=== PATIENT | female | born 1990 | race Caucasian/White ===

== ENCOUNTER 2017-02-04 11:55 | Emergency (ER) | payer MEDICAID, OTHER ==
[2017-02-04 11:59] VITALS: BP 122/79
[2017-02-04] MEDS ORDERED: ACETAMINOPHEN 325 MG TABLET PO ONE (12:25)
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
== END 2017-02-04 13:25 | disposition home or self-care (01) ==
LOC: ER 11:55
DX: G44.209 Tension-type headache, unspecified, not intractable (principal); V49.9XXA Car occupant (driver) (passenger) injured in unspecified traffic accident, initial encounter; W22.11XA Striking against or struck by driver side automobile airbag, initial encounter
CPT/HCPCS: 99283; J3490

== ENCOUNTER → 2017-02-07 | Outpatient (CLI) | payer MEDICAID | LOC: RAD 14:05 | PROVIDERS: ATTEND Nurse Practitioner Women's Health | DX: Z34.81 Encounter for supervision of other normal pregnancy, first trimester (principal) | CPT/HCPCS: 76801 ==

== ENCOUNTER → 2017-06-20 | Outpatient (CLI) | payer MEDICAID ==
[~2017-06-20] MED LIST: BETAMET ACET/BETAMET NA INJ 6 MG/1 ML IM PRN; BETAMET ACET/BETAMET NA INJ 6 MG/1 ML ONE
== END ==
LOC: LC 16:22
PROVIDERS: ATTEND Obstetrics & Gynecology
PROC: 4A1HXCZ Monitoring of Products of Conception, Cardiac Rate, External Approach (ICD-10-PCS; principal; 2017-06-20)
DX: Z36 Encounter for antenatal screening of mother (principal)
CPT/HCPCS: 96372; J0702

== ENCOUNTER → 2017-06-21 | Outpatient (CLI) | payer MEDICAID | LOC: LC 19:09 | PROVIDERS: ATTEND Specialist | DX: Z36 Encounter for antenatal screening of mother (principal) | CPT/HCPCS: 96372; J0702 ==

== ENCOUNTER 2017-07-23 19:59 | Inpatient (IN) | payer MEDICAID ==
[2017-07-23] MEDS ORDERED: RINGERS SOLUTION,LACTATED 300 ML IV ONE (20:06)
[2017-07-23] MEDS ORDERED: DINOPROSTONE 10 MG VAGINAL INSERT.SR PV PRN (20:06)
[2017-07-23 21:08] LABS: ABSOLUTE BASOPHILS # (AUTO) 0.1 10^3/uL (0.0-0.2); ABSOLUTE EOSINOPHILS # (AUTO) 0.1 10^3/uL (0.0-0.6); ABSOLUTE LYMPHOCYTES (AUTO) 1.3 10^3/uL (0.5-4.7); ABSOLUTE MONOCYTES (AUTO) 0.6 10^3/uL (0.1-1.4); ABSOLUTE NEUT (AUTO) 6.7 10^3/uL (1.7-8.2); BASOPHILS % (AUTO) 0.7 % (0-2); EOSINOPHILS % (AUTO) 1.2 % (0-6); HEMATOCRIT 33.7 % (36.0-47.0); HEMOGLOBIN 11.8 g/dL (12.0-15.5); HGB HCT DIFFERENCE 1.7; LYMPHOCYTES % (AUTO) 14.6 % (13-45); MEAN CORPUSCULAR HEMOGLOBIN 30.6 pg (27.0-33.4); MEAN CORPUSCULAR HGB CONC 34.9 g/dL (32.0-36.0); MEAN CORPUSCULAR VOLUME 88 fl (80-97); MONOCYTES % (AUTO) 6.6 % (3-13); RED BLOOD COUNT 3.84 10^6/uL (3.72-5.28); RED CELL DISTRIBUTION WIDTH 12.2 % (11.5-14.0); SEGMENTED NEUTROPHILS % (AUTO) 76.9 % (42-78); WHITE BLOOD COUNT 8.7 10^3/uL (4.0-10.5)
[2017-07-23] MEDS: RINGERS SOLUTION,LACTATED 1,000 ML IV PRN (21:12)
[2017-07-23] MEDS ORDERED: DINOPROSTONE 10 MG VAGINAL INSERT.SR ONE (21:15)
[2017-07-23 21:34] LABS: ALANINE AMINOTRANSFERASE 75 U/L (9-52); ALBUMIN 3.5 g/dL (3.5-5.0); ALKALINE PHOSPHATASE 202 U/L (38-126); ANION GAP 9 (5-19); ASPARTATE AMINO TRANSFERASE 37 U/L (14-36); BILIRUBIN,DIRECT 0.5 mg/dL (0.0-0.4); BILIRUBIN,TOTAL 0.6 mg/dL (0.2-1.3); BLOOD UREA NITROGEN 11 mg/dL (7-20); CALCIUM 9.6 mg/dL (8.4-10.2); CARBON DIOXIDE 22 mmol/L (22-30); CHLORIDE 104 mmol/L (98-107); CREATININE RESULT 0.48 mg/dL (0.52-1.25); GLUCOSE 101 mg/dL (75-110); LDH 405 U/L (313-618); POTASSIUM 4.3 mmol/L (3.6-5.0); SODIUM 135.1 mmol/L (137-145); TOTAL PROTEIN 6.5 g/dL (6.3-8.2)
[2017-07-23 21:40] LABS: APPEARANCE,URINE CLEAR; BILIRUBIN,URINE NEGATIVE (NEGATIVE); GLUCOSE, URINE NEGATIVE (NEGATIVE); KETONES,URINE NEGATIVE (NEGATIVE); LEUKOCYTE ESTERASE,URINE NEGATIVE (NEGATIVE); NITRITE,URINE NEGATIVE (NEGATIVE); PROTEIN,URINE NEGATIVE (NEGATIVE); UROBILINOGEN,URINE NEGATIVE mg/dL (<2.0)
[2017-07-23 21:53] LABS: URINE BARBITURATES SCREEN NEGATIVE; URINE METHADONE SCREEN NEGATIVE; URINE OPIATES LOW NEGATIVE; URINE PHENCYCLIDINE SCREEN NEGATIVE
[2017-07-23] MEDS ORDERED: URSODIOL 300 MG CAPSULE PO ONE (23:00)
[2017-07-24] MEDS ORDERED: ZOLPIDEM TARTRATE 5 MG TABLET PO ONE ×2 (00:02→22:33)
[2017-07-24] MEDS ORDERED: ZOLPIDEM TARTRATE 5 MG TABLET ONE ×2 (00:04→22:35)
[2017-07-24] MEDS: RINGERS SOLUTION,LACTATED 1,000 ML IV PRN ×2 (00:10→20:35)
[2017-07-24] MEDS ORDERED: VALACYCLOVIR HCL 500 MG TABLET ONE ×2 (09:00→16:56)
[2017-07-24] MEDS ORDERED: OXYTOCIN/NORMAL SALINE 20 UNIT/1,000 ML RTUINJ IV PRN (09:00)
[2017-07-24] MEDS ORDERED: PENICILLIN G POTASSIUM 5,000,000 UNIT in DEXTROSE 5%-WATER 100 ML IV ONE (09:00)
[2017-07-24] MEDS: URSODIOL 300 MG CAPSULE PO SCH ×3 (09:27→22:17)
[2017-07-24] MEDS ORDERED: PROMETHAZINE HCL INJ 25 MG/1 ML VIAL ONE (11:06)
[2017-07-24] MEDS ORDERED: OXYTOCIN/NORMAL SALINE 20 UNIT/1,000 ML RTUINJ ONE (11:06)
[2017-07-24] MEDS ORDERED: NALBUPHINE HCL INJ 10 MG/1 ML AMPULE ONE (11:06)
[2017-07-24] MEDS ORDERED: PENICILLIN G-K 5 MILLION UNIT VIAL ONE ×3 (12:20→22:14)
[2017-07-24] MEDS: PENICILLIN G POTASSIUM 2,500,000 UNIT in DEXTROSE 5%-WATER 50 ML IV SCH ×2 (18:17→22:16)
[2017-07-24] MEDS: VALACYCLOVIR HCL 500 MG TABLET PO SCH (18:17)
[2017-07-24] MEDS ORDERED: MISOPROSTOL 0.1 MG TABLET ONE (20:27)
[2017-07-25] MEDS ORDERED: MISOPROSTOL 0.1 MG TABLET PO ONE ×2 (00:39→04:46)
[2017-07-25] MEDS ORDERED: MISOPROSTOL 0.1 MG TABLET PV ONE ×2 (00:41→04:44)
[2017-07-25] MEDS ORDERED: MISOPROSTOL 0.1 MG TABLET ONE ×2 (00:42→04:48)
[2017-07-25] MEDS ORDERED: PENICILLIN G-K 5 MILLION UNIT VIAL ONE ×4 (02:09→13:55)
[2017-07-25] MEDS: PENICILLIN G POTASSIUM 2,500,000 UNIT in DEXTROSE 5%-WATER 50 ML IV SCH ×5 (02:12→20:11)
[2017-07-25] MEDS: RINGERS SOLUTION,LACTATED 1,000 ML IV PRN (03:48)
[2017-07-25] MEDS: URSODIOL 300 MG CAPSULE PO SCH ×3 (04:30→16:04)
[2017-07-25] MEDS ORDERED: NALBUPHINE HCL INJ 10 MG/1 ML AMPULE IV ONE (04:44)
[2017-07-25] MEDS ORDERED: PROMETHAZINE HCL INJ 25 MG/1 ML VIAL IV ONE (04:44)
[2017-07-25] MEDS ORDERED: PROMETHAZINE HCL INJ 25 MG/1 ML VIAL ONE (04:48)
[2017-07-25] MEDS ORDERED: NALBUPHINE HCL INJ 10 MG/1 ML AMPULE ONE (04:48)
[2017-07-25] MEDS ORDERED: VALACYCLOVIR HCL 500 MG TABLET ONE (10:06)
[2017-07-25] MEDS: VALACYCLOVIR HCL 500 MG TABLET PO SCH (10:08)
[2017-07-25] MEDS ORDERED: SUCCINYLCHOLINE CHLORIDE INJ 200 MG/10 ML VIAL ONE (10:21)
[2017-07-25] MEDS ORDERED: EPHEDRINE SULFATE INJ 50 MG/1 ML AMPULE ONE ×2 (10:43→17:06)
[2017-07-25] MEDS ORDERED: BUPIVACAINE HCL 0.25 % INJ/PF (2.5 MG/1 ML) 30 ML VIAL ONE (10:44)
[2017-07-25] MEDS ORDERED: FENTANYL/BUPIVACAINE/NS/PF 200 MCG/100 ML RTUINJ EPI ONE (10:44)
--- NOTE | 2017-07-25 12:39 | L&D Progress Notes ---
PROGRESS NOTES Datetime Report Generated by CPN: 07/25/2017 12:39 PROGRESS NOTE Impression: Reassuring Heart Rate Plan: Continue Present Management; Induction Informed Consent Obtained: Vaginal Delivery Vital Signs : Reviewed; Within Normal Limits Comment: pt comfortable after epidural, Cat 1 strip, mod variability, uc's q 2 min, Pit off, after epidural had variables and lates which has resolved anticipate FETUS A FHR - Baseline: 150 Variability: Moderate 6-25bpm Accelerations: 15X15 Decelerations: Late; Variable FHR Comments: after epidural SIGNATURE SIGNATURE: [id number] Assignment: Rolando Kim MD Signature: with User ID: Jenn : with User ID: [email or web address]
--- NOTE | 2017-07-25 14:21 | L&D Progress Notes ---
PROGRESS NOTES Datetime Report Generated by CPN: 07/25/2017 14:21 PROGRESS NOTE Impression: Reassuring Heart Rate Procedures: Artificial ROM; Sterile Vag Exam Plan: Continue Present Management Informed Consent Obtained: Vaginal Delivery Comment: VE 70/vtx/0 to -1, minimal variability, arom with FSE, mod mec, unable to place FSE due to large amount of mec fluid and position of head against cervix POC discyssed with pt and FOB, no Pitocin, uc's q 2-3, will monitor closely FETUS A FHR - Baseline: 155 Monitoring: External US Variability: Moderate 6-25bpm Accelerations: 15X15 : 36.0 FETUS C SIGNATURE: [id number] Assignment: Rolando Kim MD Signature: with User ID: Jenn : with User ID: [email or web address]
--- NOTE | 2017-07-25 16:31 | L&D Progress Notes ---
PROGRESS NOTES Datetime Report Generated by CPN: 07/25/2017 16:31 PROGRESS NOTE Vital Signs : Reviewed; Within Normal Limits Comment: Pitocin turned off, minimal variability, rare variable decel, uc's q 2-3 min x [address] Kim informed of status FETUS A Decelerations: Variable : 36.0 FETUS C SIGNATURE: [id number] Assignment: Rolando Kim MD Signature: with User ID: Jenn : with User ID: [email or web address]
[2017-07-25] MEDS ORDERED: LIDOCAINE 2% INJ-PF (20 MG/ML) 10 ML AMPUL ONE (16:51)
[2017-07-25] MEDS ORDERED: CITRIC ACID/SODIUM CITRATE ORAL SOLN 15 ML UDCUP ONE (17:03)
[2017-07-25] MEDS ORDERED: CEFAZOLIN 2 GM/D5W RTU 2 GM/50 ML RTUPB IV ONE (17:04)
[2017-07-25] MEDS ORDERED: KETOROLAC TROMETHAMINE INJ/PF 30 MG/1 ML SDV ONE (17:05)
[2017-07-25] MEDS ORDERED: OXYTOCIN 10 UNIT/ML VIAL ONE (17:05)
[2017-07-25] MEDS ORDERED: FENTANYL CITRATE INJ/PF 250 MCG/5 ML AMPULE ONE (17:05)
[2017-07-25] MEDS ORDERED: FENTANYL CITRATE INJ/PF 100 MCG/2 ML AMPUL ONE ×2 (17:05→20:04)
[2017-07-25] MEDS ORDERED: MIDAZOLAM 2 MG/2 ML INJ ONE (17:06)
[2017-07-25] MEDS ORDERED: ONDANSETRON HCL INJ/PF 4 MG/2 ML SDV ONE (17:06)
[2017-07-25] MEDS ORDERED: OXYTOCIN/NORMAL SALINE 20 UNIT/1,000 ML RTUINJ ONE (17:06)
[2017-07-25] MEDS ORDERED: ACETAMINOPHEN 100 ML IV ONE (17:06)
[2017-07-25] MEDS ORDERED: RINGERS SOLUTION,LACTATED 1,000 ML IV PRN (17:23)
[2017-07-25] MEDS ORDERED: OXYCODONE-ACETAMINOPHEN 5-325 MG TABLET PO PRN (17:23)
[2017-07-25] MEDS ORDERED: OXYTOCIN/NORMAL SALINE 20 UNIT/1,000 ML RTUINJ IV PRN (17:23)
[2017-07-25] MEDS ORDERED: ACETAMINOPHEN 325 MG TABLET PO PRN (17:23)
[2017-07-25] MEDS ORDERED: SIMETHICONE 80 MG TAB.CHEW PO PRN (17:23)
[2017-07-25] MEDS ORDERED: PROMETHAZINE HCL INJ 25 MG/1 ML VIAL IV PRN (17:23)
[2017-07-25] MEDS ORDERED: MEASLES,MUMPS&RUBELLA VACC/PF 0.5 ML VIAL SUBCUT PRN (17:23)
[2017-07-25] MEDS ORDERED: ACETAMINOPHEN 100 ML IV PRN (17:23)
[2017-07-25] MEDS ORDERED: DIPH/PERTUSS(ACELL)/TETANUS VAC/PF 0.5 ML SYR (>=10YO) IM PRN (17:23)
[2017-07-25] MEDS ORDERED: PROPOFOL INJ 200 MG/20 ML VIAL IV ONE ×2 (17:40→18:28)
--- NOTE | 2017-07-25 18:34 | Operative Report ---
Operative Report DATE OF SURGERY: 07/25/17 PREOPERATIVE DIAGNOSIS: Thick meconium and a positive contraction stress test POSTOPERATIVE DIAGNOSIS: Same OPERATION: Primary via low transverse uterine incision SURGEON: ROXANE ORTIZ ANESTHESIA: GA TISSUE REMOVED OR ALTERED: Placenta COMPLICATIONS: None ESTIMATED BLOOD LOSS: 250 cc INTRAOPERATIVE FINDINGS: Normal uterus tubes and ovaries viable female Apgars 7 and 8 PROCEDURE: The baby began having repetitive variables with Pitocin. We also had very thick meconium. The induction was for fear of demise due to the cholestasis of . The patient and her family strongly desired a csection. I agreed. Patient was taken to the OR and placed in supine position after her epidural anesthesia. She is prepared and draped in sterile fashion. Carlos was placed for drainage of the bladder. She underwent general anesthesia because she felt the incision with the epidural. Low transverse incision was made and carried down the level of the fascia. The fascial incision was made with knife and extended bilaterally with curved Marie scissors. The fascia was off the rectus muscles using sharp and blunt dissection. The rectus muscles are in the midline. The peritoneum was entered without incident. Bladder blade was placed in uterine segment was identified. A low transverse incision was made creating a bladder flap. Bladder blade was placed low transverse uterine incision was made with the csafe knife and extended with fingertips. The baby was delivered with some fundal pressure. A vacuum was used to help deliver the head with 1 pull pressure in the green. Mouth and nose were suctioned free. The cord is doubly clamped and cut. Baby is passed off to the box feeder in attendance. The placenta was manually extracted with trailing membranes. The uterus was externalized wrapped in a moist lap sponge. Uterine contents wiped free. Uterus was closed with a running locking layer of 0 chromic suture using the second layer to imbricate the first completing a double layer closure of the uterus. The serosa was closed with a running 2-0 chromic stitch. The pelvis was irrigated and suctioned free of fluid the uterus was replaced in the abdomen. The abdominal wall peritoneum was closed with running 2-0 chromic stitch. Fascia was closed with a running 0 Vicryl in 2 segments. Doug's layer was brought together with 0 plain gut stitch and the skin was closed with running subcuticular 4-0 undyed Vicryl stitch. The wound was dressed mother and baby did well.
--- NOTE | 2017-07-25 19:41 | Delivery Summary ---
Del Sum A-C Datetime Report Generated by CPN: 07/25/2017 19:41 DELIVERY PERSONNEL DELIVERY PERSONNEL: [id number] Delivery Doctor:: Rolando Kim MD Anesthesiologist:: Miguelito Le MD INFORMATION SYSTEMS SECURITY DEVELOPER:: Liban Farnsworth CRNA Labor and Delivery Nurse:: Latrice Mercedes RN Labor and Delivery Nurse:: Raegan Jeter RN Neonatal Nurse Practitioner:: JORGITO Cabral Nursery Nurse:: Suad Hebert RN Embalmer/Funeral Director/ROTARY PEEL OVEN TENDER: ST Michael Embalmer/Funeral Director/ROTARY PEEL OVEN TENDER: Arash Kay, PAINT TRIMMER PIPE BOWLS MATERNAL INFORMATION Delivery Anesthesia: Epidural; General Medications After Delivery: Pitocin Drip 20 Units/1000ml NSS Estimated Blood Loss (ml): 500 Maternal Complications: Other Other Maternal Complications: Cholestasis LABOR SUMMARY EDC: 08/21/2017 00:00 No. Babies in Womb: 1 Attempted: No Labor Anesthesia: Epidural LABOR INFORMATION Reason for Induction: Other Reason for Induction- Other: Cholestasis Cervical Ripening Agents: Cytotec @ Oxytocin: Induction Group B Beta Strep: unknown Antibiotics # of Doses: 7 Antibiotics Time of Last Dose: 1556 Name of Antibiotic Given: PCN Steroids Given: None Reason Steroids Not Administered: Not Applicable MEMBRANES Membranes Rupture Method: Artificial Rupture of Membranes: 07/25/2017 14:04 Length of Rupture (hr): 3.72 Amniotic Fluid Color: Moderate Meconium Amniotic Fluid Amount: Small Amniotic Fluid Odor: None STAGES OF LABOR Stage 3 hr: 0 Stage 3 min: 1 VAGINAL DELIVERY Episiotomy: None Laceration Extension: N/A Laceration Type: None Laceration Repair: Not Applicable CSECTION DELIVERY Primary Indication: Nonreassuring Status CSection Urgency: Emergency CSection Incidence: Primary Labor: N/A Elective: Nonelective CSection Incision: Lower Uterine Transverse BABY A INFORMATION Delivery Date/Time: 07/25/2017 17:47 Method of Delivery: Born in Route : No : N/A Forceps: N/A Vacuum Extraction: Successful Shoulder Dystocia : No PRESENTATION/POSITION BABY A Presentation: Cephalic Breech Presentation: N/A PLACENTA INFORMATION BABY A Placenta Delivery Time : 07/25/2017 17:48 Placenta Method of Delivery: Manual Removal Placenta Status: Delivered SCORES BABY A Heart Rate 1 min: >100 bpm Resp Effort 1 min: Slow, Irregular Reflex Irritability 1 min: Cough or Sneeze or Pulls Away Muscle Tone 1 min: Some Flexion of Extremities Color 1 min: Body [place], Extremities Blue Resuscitation Effort 1 min: N/A SCORE 1 MIN: 7 Heart Rate 5 min: >100 bpm Resp Effort 5 min: Good Cry Reflex Irritability 5 min: Cough or Sneeze or Pulls Away Muscle Tone 5 min: Some Flexion of Extremities Color 5 min: Body [place], Extremities Blue Resuscitation Effort 5 min: N/A SCORE 5 MIN: 8 INFORMATION BABY A Gestational Age at Delivery: 36.1 Gestational Status: Late - 34- 36.6 Weeks Outcome : Liveborn Infant Condition : Stable Infant Sex: Female IDENTIFICATION BABY A ID Band Number: [id number] Mother's Name Verified: Yes Infant RN Verifying : C. Mago, RN/ C. Steffany, RN WEIGHT/LENGTH BABY A Birthweight (gm): 3175 Weight (lb): 7 Infant Weight (oz): 0 Length (in): 19.50 Infant Length (cm): 49.53 CORD INFORMATION BABY A No. Cord Vessels: 3 Nuchal Cord : N/A Cord Blood Taken: Yes-For Storage (Mom's Blood type +) Suction: None ASSESSMENT BABY A Respirations: Appears Normal Skin to Skin: No Infant Care By: Larry hebert RN
[2017-07-25] MEDS: DOCUSATE SODIUM 100 MG CAPSULE PO SCH (20:11)
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
[2017-07-25] MEDS: HYDROMORPHONE HCL INJ/PF 2 MG/ML AMPULE IV PRN (21:50)
[2017-07-26] MEDS: HYDROMORPHONE HCL INJ/PF 2 MG/ML AMPULE IV PRN ×2 (01:00→04:16)
[2017-07-26] MEDS: KETOROLAC TROMETHAMINE INJ/PF 30 MG/1 ML SDV IV SCH ×2 (01:41→10:19)
[2017-07-26 06:54] LABS: HEMATOCRIT 25.6 % (36.0-47.0); HGB HCT DIFFERENCE 1.7; MEAN CORPUSCULAR HEMOGLOBIN 31.3 pg (27.0-33.4); MEAN CORPUSCULAR HGB CONC 35.6 g/dL (32.0-36.0); MEAN CORPUSCULAR VOLUME 88 fl (80-97); RED BLOOD COUNT 2.91 10^6/uL (3.72-5.28); RED CELL DISTRIBUTION WIDTH 12.2 % (11.5-14.0)
[2017-07-26 06:55] LABS: HEMOGLOBIN 9.1 g/dL (12.0-15.5)
[2017-07-26] MEDS: OXYCODONE-ACETAMINOPHEN 5-325 MG TABLET PO PRN ×4 (06:56→20:18)
[2017-07-26] MEDS: VALACYCLOVIR HCL 500 MG TABLET PO SCH (10:19)
[2017-07-26] MEDS: PRENATAL VITAMIN W-O CA NO5/FE FUMARATE/FA CAPSULE PO SCH (10:20)
[2017-07-26] MEDS: DOCUSATE SODIUM 100 MG CAPSULE PO SCH ×2 (10:20→17:46)
--- NOTE | 2017-07-26 10:28 | PDOC PROGRESS REPORT ---
Subjective-OB Subjective: Post Delivery Day: 27 year old. Denies any needs at this time Physical Exam (OB) Vital Signs: Temp Pulse Resp BP Pulse Ox 98.2 F 100 14 116/66 96 07/26/17 07:47 07/26/17 07:47 07/26/17 07:47 07/26/17 07:47 07/26/17 07:47 Intake & Output 07/25/17 07/26/17 07/27/17 06:59 06:59 06:59 Intake Total 480 300 Output Total 1200 Balance -720 300 - PIH/Pre-Eclampsia Headache: Absent Epigastric Pain: No Visual Changes: No - Dressing Removed: No Incision: Draining Closure Type: opsite - Lochia Lochia Amount: Small 10-25 ml Lochia Color: Rubra/Red - Abdomen Description: Tender, Soft Hernia Present: No Bowel Sounds: Normoactive Flatus Presence: Present Stool: No Fundal Description: Firm Fundal Height: u/u - u/2 Objective-Diagnostic Laboratory: 07/26/17 06:28 07/23/17 20:45 07/26/17 06:28 WBC 7.0 RBC 2.91 L Hgb 9.1 L D Hct 25.6 L MCV 88 MCH 31.3 MCHC 35.6 RDW 12.2 Plt Count 133 L
[2017-07-26] MEDS: IBUPROFEN 800 MG TABLET PO SCH (17:45)
[2017-07-27] MEDS: OXYCODONE-ACETAMINOPHEN 5-325 MG TABLET PO PRN ×3 (00:14→09:09)
[2017-07-27] MEDS: IBUPROFEN 800 MG TABLET PO SCH ×3 (00:30→11:54)
--- NOTE | 2017-07-27 08:40 | PDOC PROGRESS REPORT ---
Subjective-OB Subjective: Post Delivery Day: 27 year old. Denies any needs at this time Doing ok, pain from pelvis separation and incisional pain, breast feeding, hsb at bs,scant bleeding Physical Exam (OB) Vital Signs: Temp Pulse Resp BP Pulse Ox 98 F 75 16 121/66 100 07/27/17 08:00 07/27/17 08:00 07/27/17 08:00 07/27/17 08:00 07/27/17 08:00 Intake & Output 07/26/17 07/27/17 07/28/17 06:59 06:59 06:59 Intake Total 480 2000 Output Total 1200 800 Balance -720 1200 - PIH/Pre-Eclampsia Headache: Absent Epigastric Pain: No Visual Changes: No - Dressing Removed: No Incision: Draining Closure Type: opsite - Lochia Lochia Amount: Scant < 10 ml Lochia Color: Rubra/Red - Abdomen Description: Tender, Soft Hernia Present: No Fundal Description: Firm Fundal Height: u/u - u/2 Objective-Diagnostic Laboratory: 07/26/17 06:28 07/23/17 20:45 Assessment and Plan(PN) - Assessment and Plan (1) Cholestasis during Qualifiers: Trimester: third trimester Qualified Code(s): O26.613 - Liver and biliary tract disorders in , third trimester; K83.1 - Obstruction of bile duct Is this a current diagnosis for this admission?: Yes (2) Delivery by emergency caesarean section Is this a current diagnosis for this admission?: Yes (3) HSV infection Is this a current diagnosis for this admission?: Yes (4) Non-reassuring electronic monitoring tracing Is this a current diagnosis for this admission?: Yes (5) Pubic diastasis during Is this a current diagnosis for this admission?: Yes - Time Spent with Patient Time with patient: Less than 15 minutes Smoking Education Provided: Over 3 minutes - Disposition Anticipated Discharge: Home Within: Other - discharge today
--- NOTE | 2017-07-27 08:44 | PDOC DISCHARGE SUMMARY ---
Final Diagnosis Discharge Date: 07/27/17 - Final Diagnosis (1) Cholestasis during Is this a current diagnosis for this admission?: Yes (2) Delivery by emergency caesarean section Is this a current diagnosis for this admission?: Yes (3) HSV infection Is this a current diagnosis for this admission?: Yes (4) Non-reassuring electronic monitoring tracing Is this a current diagnosis for this admission?: Yes (5) Pubic diastasis during Is this a current diagnosis for this admission?: Yes Discharge Data - Discharge Medication Home Medications: Ursodiol 300 mg PO QID 07/25/17 Valacyclovir HCl [Valtrex] 1 tab PO DAILY 07/25/17 Ibuprofen [Motrin 800 mg Tablet] 800 mg PO Q6 #60 tablet 07/27/17 Oxycodone HCl/Acetaminophen [Percocet 5-325 mg Tablet] 1 tab PO Q4HP PRN #30 tablet 07/27/17 Valacyclovir HCl [Valtrex 500 mg Tablet] 1,000 mg PO DAILY tablet 07/27/17 Gestational Age: 36.1 Reason(s) for Admission: Induction of Labor Admission Note: cholestatsis Intrapartum Procedure(s): : Low Cervical, Transverse - [place] Data Baby 1 Female at 1 minute: 7 at 5 minutes: 8 Weight: 3.175 kg Home with Mother: Yes Complications: No - Diagnosis Test Laboratory: Temp Pulse Resp BP Pulse Ox 98 F 75 16 121/66 100 07/27/17 08:00 07/27/17 08:00 07/27/17 08:00 07/27/17 08:00 07/27/17 08:00 07/23/17 07/23/17 07/26/17 20:45 21:20 06:28 RBC 3.84 2.91 L Hgb 11.8 L 9.1 L D Hct 33.7 L 25.6 L Urine Opiates Screen NEGATIVE - Discharge information/Instructions Discharge Activity: Activity As Tolerated, No Lifting Over 10 Pounds, No Lifting /Push/Pulling, Pelvic Rest Discharge Diet: As Tolerated, Regular Disposition: HOME, SELF-CARE Follow up with: [facility] in: 1, Weeks
[2017-07-27] MEDS: PRENATAL VITAMIN W-O CA NO5/FE FUMARATE/FA CAPSULE PO SCH (09:07)
[2017-07-27] MEDS: DOCUSATE SODIUM 100 MG CAPSULE PO SCH (09:07)
[2017-07-27] MEDS: VALACYCLOVIR HCL 500 MG TABLET PO SCH (09:15)
[2017-07-27 11:50] VITALS: BP 129/84
== END 2017-07-27 12:24 | disposition home or self-care (01) | DRG 765 ==
LOC: LR 19:59 → 2S 07-25 20:30
PROVIDERS: ADMIT Obstetrics & Gynecology; ATTEND Obstetrics & Gynecology
PROC: 10D00Z1 Extraction of Products of Conception, Low, Open Approach (ICD-10-PCS; principal; 2017-07-25)
DX: O26.62 Liver and biliary tract disorders in childbirth (principal); K83.1 Obstruction of bile duct; O98.32 Other infections with a predominantly sexual mode of transmission complicating childbirth; A60.00 Herpesviral infection of urogenital system, unspecified; O77.0 Labor and delivery complicated by meconium in amniotic fluid; O76 Abnormality in fetal heart rate and rhythm complicating labor and delivery; O71.89 Other specified obstetric trauma; Z3A.36 36 weeks gestation of pregnancy; Z37.0 Single live birth
CPT/HCPCS: 1961; 36415; 80053; 80307; 81005; 83615; 85025; 85027; 86592; 86850; 86900; 86901; 88307; 94799; J0131; J0330; J0690; J1170; J1885; J2250; J2300; J2405; J2540; J2550; J2590; J2704; J3010; J3490

== ENCOUNTER 2017-12-29 20:05 | Emergency (ER) | payer OTHER, MEDICAID ==
[2017-12-29] MEDS ORDERED: HYDROCODONE/ACETAMINOPHEN 5-325 MG TABLET PO ONE (20:26)
[2017-12-29] MEDS ORDERED: IBUPROFEN 600 MG TABLET PO ONE (20:26)
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
[2017-12-29 21:47] LABS: AMORPHOUS SEDIMENT,URINE TRACE /HPF; APPEARANCE,URINE CLOUDY; BILIRUBIN,URINE NEGATIVE (NEGATIVE); COLOR,URINE YELLOW; GLUCOSE, URINE NEGATIVE (NEGATIVE); KETONES,URINE TRACE mg/dL (NEGATIVE); LEUKOCYTE ESTERASE,URINE MODERATE (NEGATIVE); NITRITE,URINE NEGATIVE (NEGATIVE); PROTEIN,URINE NEGATIVE (NEGATIVE); URINE SPECIFIC GRAVITY 1.017; UROBILINOGEN,URINE NEGATIVE mg/dL (<2.0)
[2017-12-29] MEDS ORDERED: OXYCODONE-ACETAMINOPHEN 5-325 MG TABLET PO ONE (21:49)
== END 2017-12-29 22:07 | disposition home or self-care (01) ==
LOC: ER 20:05
DX: O26.92 Pregnancy related conditions, unspecified, second trimester (principal); S30.0XXA Contusion of lower back and pelvis, initial encounter; R10.2 Pelvic and perineal pain; V89.2XXA Person injured in unspecified motor-vehicle accident, traffic, initial encounter; Z3A.20 20 weeks gestation of pregnancy
CPT/HCPCS: 72170; 81001; 81025; 99284